=== PATIENT | male | born 1965 | race Caucasian/White ===

== ENCOUNTER 2019-11-05 12:12 | Outpatient (CLI) | payer BC ==
[2019-11-05] MEDS ORDERED: Iopamidol-370 76% 500 ML 1 ML ONE (13:56)
--- NOTE | 2019-11-05 14:38 | CT ---
CT ABDOMEN AND PELVIS WITH IV CONTRAST 11/05/2019 CLINICAL INFORMATION: Left lower quadrant abdominal pain intermittently for 2 months. History of prior appendectomy accordi ng to patient. COMPARISON: 08/03/2004 Technique: Multiple contiguous axial CT images are obtained through the abdomen and pelvis with IV contrast. Cor onal reformatted images are provided. FINDINGS: Lower Chest: Minimal dependent bibasilar atelectasis. Vessels: Vascular calcifications are seen in the abdominal aorta and involving the iliac arteries. Abdomen: Portal vein:Patent Gallbladder: Within normal limits for CT imaging. 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 There is a subtle area of enhancement seen medial segment left hepatic lobe better visualized on study in 2003. Given stability over this period of sidney e suggests this likely represents a nonaggressive lesion and probably represents a hemangioma. Spleen: Negative granuloma is present. Pancreas: within normal limits. Adrenals: within normal limits. Kidneys: Subcentimeter too small to characterize hypodense lesions are seen in each kidney. Bowel: Normal caliber. Appendix: Not visualized. Patient provides clinical history of prior appendectomy. Peritoneum: No ascites or free air; no fluid collection. Mesentery and Retroperitoneum: No enlarged mesenteric or retroperitoneal lymph nodes. Abdominal Wall: Surgical clips are seen in the inguinal regions bilaterally stable from study in 2003 . Pelvis: Reproductive Organs: No pelvic masses. Pelvis within normal limits. Bladder: within normal limits. Bones: within normal limits. There is generalized atrophy of the visualized proximal right lower extremity compared to the left. P geovani does have history of right lower extremity amputation which likely accounts for this finding. IMPRESSION: 1. No acute findings are seen in the abdomen or pelvis. 2. Stable hypodense lesion above the level hepatic IVC as well as stable mildly enhancing lesion in t he left hepatic lobe which are stable compared to prior studies suggesting nonaggressive lesions. 2. Subcentimeter too small to characterize hypodense lesions in each kidney.
== END 2019-11-05 12:13 | disposition home or self-care (01) ==
LOC: BICCT 12:12
PROVIDERS: ATTEND Internal Medicine Gastroenterology
DX: R10.32 Left lower quadrant pain (principal); N28.89 Other specified disorders of kidney and ureter; K76.9 Liver disease, unspecified
CPT/HCPCS: 74177; Q9967

== ENCOUNTER 2022-04-15 13:12 | Outpatient (CLI) | payer BC | END 2022-04-15 13:13 | disposition home or self-care (01) | LOC: BICCT 13:12 | PROVIDERS: ATTEND Otolaryngology Plastic Surgery within the Head & Neck | DX: H60.502 Unspecified acute noninfective otitis externa, left ear (principal); M89.9 Disorder of bone, unspecified; H61.892 Other specified disorders of left external ear | CPT/HCPCS: 70480 ==

== ENCOUNTER 2025-08-23 13:10 | Outpatient (CLI) | payer OTHER | END 2025-08-23 13:11 | disposition home or self-care (01) | LOC: BICCT 13:10 | PROVIDERS: ATTEND Internal Medicine Cardiovascular Disease | DX: Z13.6 Encounter for screening for cardiovascular disorders (principal); I25.10 Atherosclerotic heart disease of native coronary artery without angina pectoris | CPT/HCPCS: 75571 ==